=== PATIENT | male | born 1950 | race Caucasian/White ===

== ENCOUNTER 2017-11-29 11:26 | Day surgery (SDC) | payer MEDICARE, BC ==
[2017-11-29] MEDS ORDERED: Lactated Ringers 1,000 ML IV SCH (11:30)
[2017-11-29] MEDS ORDERED: Sodium Chloride 0.9% 10 ML Syringe FLUSH PRN (11:30)
--- NOTE | 2017-11-29 12:54 | PCM.HPR ---
H & P Addendum review - H & P Addendum Review Date of Original H & P: 11/27/17 Date Reviewed: 11/29/17 Time Reviewed: 12:54 Patient was Examined: No Changes
[2017-11-29] MEDS ORDERED: fentaNYL 100 MCG/2 ML SDV ONE ×2 (12:58→13:02)
[2017-11-29] MEDS ORDERED: Midazolam 1 MG/ML 2 ML SDV ONE ×2 (12:58→13:02)
[2017-11-29] MEDS ORDERED: Propofol 200 MG/20 ML SDV ONE ×2 (12:59→13:02)
--- NOTE | 2017-11-29 13:21 | PCM.OPNOTE ---
- General Post-Op/Procedure Note Date of Surgery/Procedure: 11/29/17 Operative Procedure(s): Colonoscopy Findings: Normal Pre Op Diagnosis: FH Colon Ca Post-Op Diagnosis: Same Anesthesia Technique: MAC Primary Surgeon: John Barclay Anesthesia Provider: Cora Marshall Complications: None Condition: Good
--- NOTE | 2017-11-29 14:20 | OR ---
Date of Procedure: 11/29/2017 PREOPERATIVE DIAGNOSIS: Family history of colon cancer in mother. POSTOPERATIVE DIAGNOSIS: Normal colonoscopy. PROCEDURE: Colonoscopy. ANESTHESIA: IV sedation. DESCRIPTION OF PROCEDURE: The patient was brought to the procedure room where he was placed on his left side and IV sedation administered. Digital rectal exam was performed which was normal. Colonoscope was inserted and advanced to the level of the cecum without difficulty. Cecal position was confirmed by identifying the appendiceal lumen and the ileocecal valve. Prep was good and surfaces were well visualized. Upon withdrawing the scope, the ascending, transverse, and descending colon were normal in appearance. Sigmoid colon and rectum were normal. Retroflexion was normal. Air was removed and the scope withdrawn. The patient tolerated the procedure well and returned to recovery in stable condition. Recommend routine colon screening again in 5 years. MODL NIHARIKA CARIAS MD /[id number]
[2017-11-29 14:57] VITALS: BP 111/74
== END 2017-11-29 14:50 | disposition home or self-care (01) ==
LOC: LL.SDS 11:26
PROVIDERS: ATTEND Surgery
DX: Z12.11 Encounter for screening for malignant neoplasm of colon (principal); J44.9 Chronic obstructive pulmonary disease, unspecified; I10 Essential (primary) hypertension; I25.10 Atherosclerotic heart disease of native coronary artery without angina pectoris; E03.9 Hypothyroidism, unspecified; E06.3 Autoimmune thyroiditis; E78.2 Mixed hyperlipidemia; N40.0 Benign prostatic hyperplasia without lower urinary tract symptoms; Z79.82 Long term (current) use of aspirin; Z79.899 Other long term (current) drug therapy; Z80.0 Family history of malignant neoplasm of digestive organs; Z88.8 Allergy status to other drugs, medicaments and biological substances
CPT/HCPCS: G0105; J2250; J2704; J3010; J7120; 00812

== ENCOUNTER 2022-06-27 03:51 | Emergency (ER) | payer MEDICARE, BC ==
[2022-06-27 04:02] VITALS: BP 161/94; PULSE 69
[2022-06-27] MEDS ORDERED: Magnesium Citrate Solution 296 ML Bottle PO ONE (04:30)
== END 2022-06-27 04:40 | disposition home or self-care (01) ==
LOC: LL.ED 03:51
DX: K59.00 Constipation, unspecified (principal); I10 Essential (primary) hypertension; J44.9 Chronic obstructive pulmonary disease, unspecified; E66.9 Obesity, unspecified; Z88.8 Allergy status to other drugs, medicaments and biological substances; Z79.899 Other long term (current) drug therapy
CPT/HCPCS: 74022; 99283

== ENCOUNTER 2023-01-18 07:56 | Day surgery (SDC) | payer MEDICARE, BC ==
[2023-01-18] MEDS ORDERED: Sodium Chloride 0.9% 10 ML Syringe FLUSH PRN (08:27)
[2023-01-18] MEDS ORDERED: Midazolam 1 MG/ML 2 ML SDV ONE (08:30)
[2023-01-18] MEDS ORDERED: Lactated Ringers 1,000 ML IV SCH (08:30)
[2023-01-18] MEDS ORDERED: Propofol 200 MG/20 ML SDV ONE (08:31)
[2023-01-18 10:03] VITALS: BP 131/87; PULSE 51
== END 2023-01-18 10:30 | disposition home or self-care (01) ==
LOC: LL.SDS 07:56
PROVIDERS: ATTEND Surgery
DX: Z12.11 Encounter for screening for malignant neoplasm of colon (principal); L20.9 Atopic dermatitis, unspecified; I25.10 Atherosclerotic heart disease of native coronary artery without angina pectoris; E78.00 Pure hypercholesterolemia, unspecified; I10 Essential (primary) hypertension; N40.0 Benign prostatic hyperplasia without lower urinary tract symptoms; J44.9 Chronic obstructive pulmonary disease, unspecified; M19.90 Unspecified osteoarthritis, unspecified site; E03.9 Hypothyroidism, unspecified; E66.9 Obesity, unspecified; Z80.0 Family history of malignant neoplasm of digestive organs; Z88.8 Allergy status to other drugs, medicaments and biological substances; Z79.890 Hormone replacement therapy; Z79.899 Other long term (current) drug therapy; Z95.1 Presence of aortocoronary bypass graft; Z95.5 Presence of coronary angioplasty implant and graft; Z79.82 Long term (current) use of aspirin; Z85.038 Personal history of other malignant neoplasm of large intestine
CPT/HCPCS: 00812; J2250; J2704; J7120